=== PATIENT | male | born 1965 ===

== ENCOUNTER 2023-07-29 05:11 | Day surgery (SDC) | payer OTHER ==
[~2023-07-29 05:11] MED LIST: VASOTEC20 MG
[2023-07-29] MEDS ORDERED: CEFTRIAXONE SODIUM 2,000 MG VIAL ONE ×2 (06:29→07:33)
[2023-07-29] MEDS ORDERED: METRONIDAZOLE/SODIUM CHLORIDE 500 MG/100 ML PIGGYBACK IV ONE ×3 (06:29→14:15)
[2023-07-29] MEDS ORDERED: BUPIVACAINE HCL/PF 0.5% 30ML ML ONE (07:33)
[2023-07-29] MEDS ORDERED: LIDOCAINE HCL/EPINEPHRINE 20 ML VIAL IJ ONE ×2 (07:33→14:15)
[2023-07-29] MEDS ORDERED: POVIDONE-IODINE 118 ML BOTT TOP ONE ×2 (07:42→14:15)
[2023-07-29] MEDS ORDERED: HEMOSTATIC MATRIX 1 KIT KIT TOP ONE ×2 (07:55→14:15)
[2023-07-29] MEDS ORDERED: DIBUCAINE 30 GM TUBE ONE (08:03)
[2023-07-29] MEDS ORDERED: PERCOCET 5-3251 EACH PO (08:29)
[2023-07-29] MEDS ORDERED: RECTICARE30 GM TOP (08:29)
[2023-07-29] MEDS ORDERED: BUPIVACAINE HCL/PF 0.5% 5MG/ML VIAL IJ ONE (14:15)
[2023-07-29] MEDS ORDERED: DIBUCAINE 30 GM TUBE TOP ONE (14:15)
[2023-07-29] MEDS ORDERED: CEFTRIAXONE SODIUM 2,000 MG VIAL IV ONE (14:15)
== END 2023-07-29 14:10 | disposition home or self-care (01) ==
LOC: CIR.AMB 05:11
PROVIDERS: ATTEND Surgery
DX: K60.2 Anal fissure, unspecified (principal); K62.4 Stenosis of anus and rectum; K64.8 Other hemorrhoids; K60.3 Anal fistula; K62.5 Hemorrhage of anus and rectum